=== PATIENT | male | born 1950 | race Caucasian/White ===

== ENCOUNTER 2019-06-01 07:48 | Emergency (ER) | payer MEDICAID ==
[~2019-06-01] VITALS: Ht 177.8 cm; Wt 88.5 kg
--- NOTE | 2019-06-01 08:17 | Emergency Room Report ---
History of Present Illness General Chief Complaint: Abdominal Pain Source: Patient Present Illness HPI Patient is a 69-year-old male presents after increased left-sided chest pain. He denies recent trauma. He reports having worsening pain with movement and deep breath. He states this began after sleeping on a sofa. He denies any recent falls. Prior history of Parkinson's disease. Denies any vomiting or hemoptysis. reports having some prior cardiac history. He had not been having any fever. Denies any history of smoking.Patient is currently being followed by neurology. Allergies: Coded Allergies: No Known Allergies (Unverified , 06/01/19) Patient History Past Medical History: see triage record Reviewed Nursing Documentation: PMH: Agreed; PSxH: Agreed Nursing Documentation-PMH Hx Cardiac Problems: Yes - CVA 2017 Hx Hypertension: Yes Hx Cancer: Yes - Prostate Stage I Hx Neurological Problems: No - delirium tremens Review of Systems All Other Systems: negative except mentioned in HPI Physical Exam Vital Signs Date Time Temp Pulse Resp B/P (MAP) Pulse Ox O2 Delivery O2 Flow Rate FiO2 06/01/19 07:54 98.8 104 18 156/96 (116) 95 Room Air Sp02 EP Interpretation: reviewed, normal General Appearance: normal inspection, well appearing, no apparent distress, alert, GCS 15 Head: atraumatic ENT: normal ENT inspection, hearing grossly normal, normal voice Neck: normal inspection, full range of motion, supple, no bony tend Respiratory: normal inspection, lungs clear, normal breath sounds, no respiratory distress, no retraction, no wheezing Cardiovascular #1: regular rate, rhythm, no edema Gastrointestinal: normal inspection, normal bowel sounds, non tender, soft, no guarding, no hernia Genitourinary: no CVA tenderness Musculoskeletal: normal inspection, back normal, normal range of motion Neurologic: normal inspection, alert, oriented x3, responsive, speech normal Psychiatric: normal inspection, judgement/insight normal, mood/affect normal Medical Decision Making Diagnostic Impression: Primary Impression: Closed rib fracture Last Vital Signs Date Time Temp Pulse Resp B/P (MAP) Pulse Ox O2 Delivery O2 Flow Rate FiO2 06/01/19 07:54 98.8 104 18 156/96 (116) 95 Room Air Status: improved Disposition: HOME, SELF-CARE Scripts Hydrocodone Bit/Acetaminophen 5-325* (NORCO 5-325*) 1 Each Tablet 1 TAB ORAL Q6H PRN for For Pain, #20 TAB 0 Refills Prov: Carl Evans MD 06/01/19 Carl Evans MD Jun 01, 2019 08:17
--- NOTE | 2019-06-01 08:23 | NUR ---
ED Nurse Note: PT drove self, ambulated to ED, A/O x 4; states pain is "about a 9/10, 10 being screaming", V/S stable HR 98; RR 22; 97%; 97.8 temp. PT has injury to R-side nose bridge, asked how it happen pt states "it could be a bed bug bite, my unit and 4 other units are getting sprayed". PT states he had a stroke 1 year ago, 8 mini strokes while he was asleep about 1.5 years ago. RUQ rib area pt complains of intense pain, lidocaine patch administers. PT is currently getting treated for prostate cancer, PSA lvl PT states 3.3. Will continue to monitor PT. Addendum: 06/01/19 at 0858 by RICHIE ED Nurse Note: Correction: Not RUQ rib, but it is LUQ rib. PT drove self, ambulated to ED, A/O x 4; states pain is "about a 9/10, 10 being screaming", V/S stable HR 98; RR 22; 97%; 97.8 temp. PT has injury to R-side nose bridge, asked how it happen pt states "it could be a bed bug bite, my unit and 4 other units are getting sprayed". PT states he had a stroke 1 year ago, 8 mini strokes while he was asleep about 1.5 years ago. LUQ rib area pt complains of intense pain, lidocaine patch administers. PT is currently getting treated for prostate cancer, PSA lvl PT states 3.3. Will continue to monitor PT.
[2019-06-01 08:31] VITALS: BP 156/96
--- NOTE | 2019-06-01 08:42 | NUR ---
ED Nurse Note: PT transported by wheelchair to get xray of ribs
--- NOTE | 2019-06-01 08:52 | NUR ---
ED Nurse Note: PT in bed, placed back on monitor, currently reading a book. A/O x 4.
[2019-06-01 08:56] VITALS: BP 171/101
--- NOTE | 2019-06-01 09:06 | NUR ---
ED Nurse Note: PT has home meds at bedside, confirmed with MD Nathan if PT can take prescribed home med for BP Lisinopril 40mg once daily. MD Nathan okay with PT taking Lisinopril. Provided PT with water, no difficulty swallowing medication noted.
[2019-06-01] MEDS ORDERED: NORCO 5-325 TA1 EACH ORAL (09:25)
[2019-06-01] MEDS ORDERED: HYDROcodone/Acetamin 5/325 tab ORAL ONE (09:30)
[2019-06-01 09:35] VITALS: BP 153/94
[2019-06-01 09:39] VITALS: BP 153/94
--- NOTE | 2019-06-01 10:27 | Diagnostic Imaging Report ---
EXAM: XR Left Ribs, 2 Views CLINICAL HISTORY: PAIN TECHNIQUE: Frontal and oblique views of the left ribs. COMPARISON: No relevant prior studies available. FINDINGS: Lungs: Unremarkable. No consolidation. Pleural space: Unremarkable. No pneumothorax. Heart: Unremarkable. No cardiomegaly. Mediastinum: Unremarkable. Bones joints: Left lateral rib 9 and 10 slightly displaced fractures. Degenerative changes of the spine. IMPRESSION: Left lateral rib 9 and 10 slightly displaced fractures.
== END 2019-06-01 09:39 | disposition home or self-care (01) ==
LOC: EMR 08:42
DX: S22.42XA Multiple fractures of ribs, left side, initial encounter for closed fracture (principal); X58.XXXA Exposure to other specified factors, initial encounter; G20 Parkinson's disease; Z86.73 Personal history of transient ischemic attack (TIA), and cerebral infarction without residual deficits; I10 Essential (primary) hypertension; Z85.46 Personal history of malignant neoplasm of prostate
CPT/HCPCS: 71101; Z7502; 99283

== ENCOUNTER 2019-12-18 18:23 | Emergency (ER) | payer MEDICAID ==
[~2019-12-18] VITALS: Ht 177.8 cm; Wt 86.2 kg
[~2019-12-18 18:23] MED LIST: NORCO 5-325 TA1 EACH ORAL
--- NOTE | 2019-12-18 18:45 | NUR ---
ED Nurse Note:pt. came from home s/p fall today, has laceration on right eye brow, wound was cleaned , also pt. c/o bowel incontinance, he was examed by ER MD
[2019-12-18 18:51] VITALS: BP 103/68
[2019-12-18] MEDS ORDERED: Tetanus/Diptheria/Pertussis IM ONE (19:00)
--- NOTE | 2019-12-18 19:00 | Emergency Room Report ---
History of Present Illness General Chief Complaint: General Complaint Source: Patient Present Illness HPI Disclaimer: Please note that this report is being documented using DRAGON technology. This can lead to erroneous entry secondary to incorrect interpretation by the dictating instrument. HPI: 69-year-old male presents for evaluation after a fall. The patient states he lost his footing going up a flight of stairs and rolled backwards striking his head against one of the stairs sustaining a laceration over the right eyebrow. He applied pressure to achieve hemostasis but the patient does take Eliquis for a prior stroke. He reports mild headache but denies changes in vision, neck or back pain. Denies pain in the extremities or difficulty ambulating since. The patient also reports that he has had difficulty controlling his bowels reporting fecal incontinence over the past 2 to 3 weeks. Denies diarrhea or loose stools simply states that he will accidentally soil himself. Denies abdominal pain, nausea, vomiting history of constipation. Denies urinary retention, dysuria, hematuria or flank pain. Denies weakness in the lower extremities, changes in sensation, difficulty ambulating or other changes in his health generally. 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 There is a 2 cm laceration over the right eyebrow in the temporal side without active bleeding or surrounding erythema or purulence. Extraocular movement are intact, visual kuhn are full, vision grossly intact bilaterally. No nystagmus. No septal hematoma, no facial tenderness or midface instability. No dental trauma. No hemotympanum. Cardiovascular: RRR. S1 and S2 normal. No murmur appreciated Resp: Normal work of breathing. No cough, wheezing or crackles appreciated Abdomen: Abdomen is soft, nondistended. Nontender Skin: Intact. No abrasions, laceration or rash over the exposed skin MSK: Normal tone and bulk. Moving all extremities. No obvious deformity. Neuro: Awake and alert. Mentating appropriately. Procedures Laceration/Wound Repair Laceration/Wound Repair : Consent: Verbal Wound Location: face Wound's Depth, Shape: superficial, linear Wound Length (cm): 2 Wound Explored: clean Irrigated w/ Saline (ccs): 500 Betadine Prep?: Yes Anesthesia: 1% Lidocaine Volume Anesthetic (ccs): 3 Wound Debrided: None Wound Repaired With: sutures Suture Size/Type: 5:0, proline Number of Sutures: 4 Layer Closure?: No Sterile Dressing Applied?: Yes Patient Tolerated: Well Complications: None Medical Decision Making Diagnostic Impression: Primary Impression: Closed head injury Additional Impression: Facial laceration ER Course 69-year-old male presents for evaluation of facial laceration after a fall. Patient is on Eliquis and concern for intercranial injury a head CT was obtained but does not show evidence of bleed, mass or fracture. Old strokes are noted which the patient is aware of. Laceration was irrigated and repaired with 4 simple interrupted sutures using 5-0 Prolene. His labs returned within normal limits and x-ray of his abdomen does not show evidence of impaction, obstruction or other significant findings. He is well-appearing no acute distress. Patient will be discharged to follow-up with his PMD. Laboratory Tests Test 12/18/19 19:20 White Blood Count 9.9 K/UL (4.8-10.8) Red Blood Count 3.88 M/UL (4.70-6.10) L Hemoglobin 13.0 G/DL (14.2-18.0) L Hematocrit 40.3 % (42.0-52.0) L Mean Corpuscular Volume 104 FL (80-99) H Mean Corpuscular Hemoglobin 33.4 PG (27.0-31.0) H Mean Corpuscular Hemoglobin Concent 32.2 G/DL (32.0-36.0) Red Cell Distribution Width 18.1 % (11.6-14.8) H Platelet Count 163 K/UL (150-450) Mean Platelet Volume 8.0 FL (6.5-10.1) Neutrophils (%) (Auto) 75.7 % (45.0-75.0) H Lymphocytes (%) (Auto) 15.0 % (20.0-45.0) L Monocytes (%) (Auto) 7.8 % (1.0-10.0) Eosinophils (%) (Auto) 0.8 % (0.0-3.0) Basophils (%) (Auto) 0.6 % (0.0-2.0) Sodium Level 142 MMOL/L (136-145) Potassium Level 4.2 MMOL/L (3.5-5.1) Chloride Level 104 MMOL/L (98-107) Carbon Dioxide Level 26 MMOL/L (21-32) Anion Gap 12 mmol/L (5-15) Blood Urea Nitrogen 17 mg/dL (7-18) Creatinine 1.3 MG/DL (0.55-1.30) Estimated Glomerular Filtration Rate 54.7 mL/min (>60) Glucose Level 122 MG/DL (74-106) H Calcium Level 8.3 MG/DL (8.5-10.1) L Total Bilirubin 0.5 MG/DL (0.2-1.0) Aspartate Amino Transferase (AST) 35 U/L (15-37) Alanine Aminotransferase (ALT) 46 U/L (12-78) Alkaline Phosphatase 100 U/L (46-116) Total Protein 6.8 G/DL (6.4-8.2) Albumin 3.7 G/DL (3.4-5.0) Globulin 3.1 g/dL Albumin/Globulin Ratio 1.2 (1.0-2.7) Other X-Ray Diagnostic Results Other X-Ray Diagnostic Results : X-Ray ordered: Abdomen # of Views/Limited Vs Complete: 1 View Indication: Pain EP Interpretation: Yes Interpretation: nonspecific bowel gas, no sbo Impression: No acute disease Electronically Signed by: Electronically signed by Dr. Valdemar Puga CT/MRI/US Diagnostic Results CT/MRI/US Diagnostic Results : Impression Final Report EXAM: CT Head Without Intravenous Contrast CLINICAL HISTORY: INJ TECHNIQUE: Axial computed tomography images of the head/brain without intravenous contrast. CTDI is 53 mGy and DLP is 1072 mGy-cm. One or more of the following dose reduction techniques were used: automated exposure control, adjustment of the mA and/or kV according to patient size, use of iterative reconstruction technique. COMPARISON: No relevant prior studies available. FINDINGS: Brain: Parenchymal volume loss. Nonspecific white matter hypoattenuation likely secondary to chronic microvascular ischemia. Cerebrovascular ASVD. Small right cerebellar infarct and bilateral basal ganglia old lacunar infarcts. No hemorrhage. Ventricles: Unremarkable. No ventriculomegaly. Bones/joints: Unremarkable. No acute fracture. Soft tissues: Unremarkable. Sinuses: Unremarkable as visualized. No acute sinusitis. Mastoid air cells: Unremarkable as visualized. No mastoid effusion. IMPRESSION: 1. No acute intracranial abnormality. 2. Moderate chronic senescent findings above. 3. Small right cerebellar infarct and bilateral basal ganglia old lacunar infarcts. Radiologist: Dao Peña MD Electronically Signed: 12/18/19 19:20 Study ready at 19:18 and initial results transmitted at 19:20 Last Vital Signs Date Time Temp Pulse Resp B/P (MAP) Pulse Ox O2 Delivery O2 Flow Rate FiO2 12/18/19 18:51 99.0 100 20 103/68 96 Room Air Disposition: HOME, SELF-CARE Condition: Stable Referrals: [facility],REFERRING (PCP) Valdemar Puga MD December 18, 2019 19:00
--- NOTE | 2019-12-18 19:21 | Diagnostic Imaging Report ---
EXAM: CT Head Without Intravenous Contrast CLINICAL HISTORY: INJ TECHNIQUE: Axial computed tomography images of the head/brain without intravenous contrast. CTDI is 53 mGy and DLP is 1072 mGy-cm. One or more of the following dose reduction techniques were used: automated exposure control, adjustment of the mA and/or kV according to patient size, use of iterative reconstruction technique. COMPARISON: No relevant prior studies available. FINDINGS: Brain: Parenchymal volume loss. Nonspecific white matter hypoattenuation likely secondary to chronic microvascular ischemia. Cerebrovascular ASVD. Small right cerebellar infarct and bilateral basal ganglia old lacunar infarcts. No hemorrhage. Ventricles: Unremarkable. No ventriculomegaly. Bones/joints: Unremarkable. No acute fracture. Soft tissues: Unremarkable. Sinuses: Unremarkable as visualized. No acute sinusitis. Mastoid air cells: Unremarkable as visualized. No mastoid effusion. IMPRESSION: 1. No acute intracranial abnormality. 2. Moderate chronic senescent findings above. 3. Small right cerebellar infarct and bilateral basal ganglia old lacunar infarcts.
[2019-12-18 19:28] LABS: BASOPHILS % (AUTO) 0.6 % (0.0-2.0); EOSINOPHILS % (AUTO) 0.8 % (0.0-3.0); HEMATOCRIT 40.3 % (42.0-52.0); MEAN CORPUSCULAR VOLUME 104 FL (80-99); MONOCYTES % (AUTO) 7.8 % (1.0-10.0); NEUTROPHILS % (AUTO) 75.7 % (45.0-75.0); PLATELET COUNT 163 K/UL (150-450); RED BLOOD COUNT 3.88 M/UL (4.70-6.10); RED CELL DISTRIBUTION WIDTH 18.1 % (11.6-14.8); WHITE BLOOD COUNT 9.9 K/UL (4.8-10.8)
[2019-12-18 19:39] LABS: ANION GAP 12 mmol/L (5-15); BLOOD UREA NITROGEN 17 mg/dL (7-18); CALCIUM 8.3 MG/DL (8.5-10.1); CARBON DIOXIDE 26 MMOL/L (21-32); CHLORIDE 104 MMOL/L (98-107); CREATININE 1.3 MG/DL (0.55-1.30); POTASSIUM 4.2 MMOL/L (3.5-5.1); SODIUM 142 MMOL/L (136-145)
[2019-12-18 19:44] LABS: ALANINE AMINOTRANSFERASE 46 U/L (12-78); ALBUMIN 3.7 G/DL (3.4-5.0); ALBUMIN/GLOBULIN RATIO 1.2 (1.0-2.7); ALKALINE PHOSPHATASE 100 U/L (46-116); ASPARTATE AMINO TRANSFERASE 35 U/L (15-37); BILIRUBIN,TOTAL 0.5 MG/DL (0.2-1.0)
[2019-12-18 21:15] VITALS: BP 121/72
--- NOTE | 2019-12-18 21:15 | NUR ---
ER DISCHARGE NOTE: Patient is cleared to be discharged per ERMD, pt is aox4, on room air, with stable vital signs. pt was given dc and prescription instructions, pt was able to verbalize understanding, pt id band and iv site removed without complications. pt is able to ambulate with steady gait. pt took all belongings.
--- NOTE | 2019-12-19 10:52 | Diagnostic Imaging Report ---
Indication: Abdominal distention Technique: Supine view of the abdomen Comparison: none Findings: The bowel gas pattern is unremarkable. No gaseous distention of large or small bowel. No masses or unusual calcifications. 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 Impression: No acute process
== END 2019-12-18 21:15 | disposition home or self-care (01) ==
LOC: EMR 18:46
DX: S01.111A Laceration without foreign body of right eyelid and periocular area, initial encounter (principal); S09.90XA Unspecified injury of head, initial encounter; I10 Essential (primary) hypertension; C61 Malignant neoplasm of prostate; W10.9XXA Fall (on) (from) unspecified stairs and steps, initial encounter; Y93.01 Activity, walking, marching and hiking; Y92.9 Unspecified place or not applicable; Z79.01 Long term (current) use of anticoagulants
CPT/HCPCS: 12011; 36415; 70450; 74018; 80053; 85025; 90471; 90715; Z7502; 99284

== ENCOUNTER → 2020-01-01 | Emergency (ER) | payer MEDICAID ==
[~2020-01-01] VITALS: Ht 177.8 cm; Wt 79.4 kg
--- NOTE | 2020-01-01 14:00 | Emergency Room Report ---
History of Present Illness General Chief Complaint: Wound Recheck/Suture Removal Source: Patient Present Illness HPI 69 YO Male presents to the ED c/o having sutures in the right eyebrow x 10 days. He denies pain, tenderness, bleeding, discharge, erythema or warmth. Patient reports he is up-to-date with vaccinations. He denies having any pertinent symptoms at this time. 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: No Patient History Past Medical History: see triage record Past Surgical History: none Pertinent Family History: none Immunizations: UTD Reviewed Nursing Documentation: PMH: Agreed; PSxH: Agreed Nursing Documentation-PMH Past Medical History: No Stated History Hx Hypertension: Yes Hx Cancer: Yes - Prostate Stage I Hx Neurological Problems: No - delirium tremens Review of Systems All Other Systems: negative except mentioned in HPI Physical Exam Vital Signs Date Time Temp Pulse Resp B/P (MAP) Pulse Ox O2 Delivery O2 Flow Rate FiO2 01/01/20 13:54 98.8 92 18 127/74 (91) 98 Room Air Sp02 EP Interpretation: reviewed, normal General Appearance: no apparent distress, alert, GCS 15, non-toxic Head: normocephalic, other - healed laceration of the Right eyebrow Eyes: bilateral eye normal inspection, bilateral eye PERRL ENT: hearing grossly normal, normal voice Neck: full range of motion Respiratory: chest non-tender, lungs clear, normal breath sounds, speaking full sentences Cardiovascular #1: regular rate, rhythm Musculoskeletal: normal range of motion, gait/station normal, non-tender Neurologic: alert, motor strength/tone normal, oriented x3, sensory intact, responsive, speech normal Psychiatric: judgement/insight normal Skin: wd healing/no infection noted - healed laceration of the Right eyebrow Lymphatic: no adenopathy Medical Decision Making PA Attestation Dr. Tomlinson is my supervising Physician whom patient management has been discussed with. Diagnostic Impression: Primary Impression: Encounter for removal of sutures ER Course 69 YO Male presents to the ED c/o having sutures in the right eyebrow x 10 days. He denies pain, tenderness, bleeding, discharge, erythema or warmth. Patient reports he is up-to-date with vaccinations. He denies having any pertinent symptoms at this time. Ddx considered but are not limited to laceration, tendon injury, cellulitis, dehiscence. Vital signs: are WNL, pt. is afebrile H&PE are most consistent with: healed laceration of the Right eyebrow ORDERS: none required at this time, the diagnosis is clinical ED INTERVENTIONS: - 3 Sutures removed. DISCHARGE: At this time pt. is stable for d/c to home. Will provide printed patient care instructions, and any necessary prescriptions. Care plan and follow up instructions have been discussed with the patient prior to discharge. Last Vital Signs Date Time Temp Pulse Resp B/P (MAP) Pulse Ox O2 Delivery O2 Flow Rate FiO2 01/01/20 13:54 98.8 92 18 127/74 (91) 98 Room Air Disposition: HOME, SELF-CARE Condition: Stable Patient Instructions: Suture Removal, Care After Priscilla Elkins Jan 01, 2020 14:00
[2020-01-01 14:04] VITALS: BP 127/74
[2020-01-01 14:20] VITALS: BP 127/74
== END | disposition home or self-care (01) ==
LOC: EMR 14:15
DX: Z48.02 Encounter for removal of sutures (principal); S01.111D Laceration without foreign body of right eyelid and periocular area, subsequent encounter; I10 Essential (primary) hypertension; C61 Malignant neoplasm of prostate; X58.XXXD Exposure to other specified factors, subsequent encounter
CPT/HCPCS: 99281